=== PATIENT | female | born 1965 | race Caucasian/White ===

== ENCOUNTER 2016-09-18 11:58 | Emergency (ER) | payer BC ==
--- NOTE | 2016-09-18 12:03 | EDM.PDOC ---
ED HPI GENERAL MEDICAL PROBLEM - General Chief Complaint: ENT Problem Stated Complaint: [id number] STREP Time Seen by Provider: 09/18/16 12:40 Source of Information: Reports: Patient, RN, RN Notes Reviewed History Limitations: Reports: No Limitations - History of Present Illness INITIAL COMMENTS - FREE TEXT/NARRATIVE: Onset sore throat 4 days ago with fever, chills and body aches. No nausea or vomiting. Quality: Reports: Ache Severity: Moderate Improves with: Reports: None Worsens with: Reports: None Associated Symptoms: Reports: No Other Symptoms Throat Pain Score (Numeric/FACES): 7 - Related Data Allergies Allergy/AdvReac Type Severity Reaction Status Date / Time Sulfa (Sulfonamide Allergy Rash Verified 09/18/16 12:06 Antibiotics) Home Meds: Home Meds Sertraline [Zoloft] 50 mg PO DAILY 05/02/16 [History] Ibuprofen 400 mg PO ASDIRECTED PRN 09/18/16 [History] Past Medical History Genitourinary History: Reports: None Psychiatric History: Reports: Depression - Past Surgical History Female Surgical History: Reports: Section Social & Family History - Family History Family Medical History: Noncontributory - Tobacco Use Smoking Status *Q: Never Smoker Second Hand Smoke Exposure: No - Caffeine Use Caffeine Use: Reports: Soda - Recreational Drug Use Recreational Drug Use: No ED ROS ENT - Review of Systems Review Of Systems: ROS reveals no pertinent complaints other than HPI. ED EXAM, ENT - Physical Exam Exam: See Below Exam Limited By: No Limitations General Appearance: Alert, WD/WN, No Apparent Distress Eye Exam: Bilateral Eye: Normal Inspection Ears: Normal External Exam, Normal Canal, Hearing Grossly Normal, Normal TMs Nose: Normal Inspection, Normal Mucousa, No Blood Mouth/Throat: Other (pharyngeal erythema with tonsillar exudates.) Head: Atraumatic, Normocephalic Neck: Other (shoddy tender bilateral upper/anterior LAD. Full ROM. No nuchal ridigity.) Respiratory/Chest: No Respiratory Distress, Lungs Clear, Normal Breath Sounds, No Accessory Muscle Use, Chest Non-Tender Cardiovascular: Normal Peripheral Pulses, Regular Rate, Rhythm, No Edema, No Gallop, No JVD, No Murmur, No Rub Back: Normal Inspection Extremities: Normal Inspection Psychiatric: Normal Affect, Normal Mood Skin: Warm, Dry, Intact, Normal Color, No Rash Course - Vital Signs Last Recorded V/S: Last Vital Signs Temp 36.4 C 09/18/16 12:04 Pulse 91 09/18/16 12:04 Resp 18 09/18/16 12:04 BP 132/68 09/18/16 12:04 Pulse Ox 98 09/18/16 12:04 - Orders/Labs/Meds Orders: Active Orders 24 hr Category Date Time Status CULTURE STREP A CONFIRMATION [RM] Stat Lab 09/18/16 12:15 Results STREP SCRN A RAPID W CULT CONF [RM] Stat Lab 09/18/16 12:15 Results Labs: Rapid strep negative. Departure - Departure Time of Disposition: 13:09 Disposition: Home, Self-Care 01 Condition: good Clinical Impression: Pharyngitis Qualifiers: Pharyngitis/tonsillitis etiology: unspecified etiology Qualified Code(s): J02.9 - Acute pharyngitis, unspecified - Discharge Information Instructions: Pharyngitis, [id number] Forms: ED Department Discharge Additional Instructions: RX: Amoxicillin 500mg. Frequent salt water gargles until improved. Follow up in clinic if not improved in 3 days. - My Orders Last 24 Hours: My Active Orders 09/18/16 12:15 CULTURE STREP A CONFIRMATION [RM] Stat STREP SCRN A RAPID W CULT CONF [RM] Stat - Assessment/Plan Last 24 Hours: My Active Orders 09/18/16 12:15 CULTURE STREP A CONFIRMATION [RM] Stat STREP SCRN A RAPID W CULT CONF [RM] Stat
[2016-09-18 12:04] VITALS: BP 132/68
== END 2016-09-18 13:26 | disposition home or self-care (01) ==
LOC: DL.ED 11:58
DX: J02.9 Acute pharyngitis, unspecified (principal); F32.9 Major depressive disorder, single episode, unspecified; Z88.2 Allergy status to sulfonamides
CPT/HCPCS: 87081; 87430; 99283

== ENCOUNTER 2017-07-04 06:02 | Day surgery (SDC) | payer BC ==
[~2017-07-04 06:02] MED LIST: Dextrose 5%-0.45% NaCl 1,000 ML IV SCH; Sodium Chloride 0.9% 10 ML Syringe FLUSH PRN
[2017-07-04] MEDS ORDERED: fentaNYL 100 MCG/2 ML SDV IV ONE ×5 (06:03→07:14)
[2017-07-04] MEDS ORDERED: Midazolam 1 MG/ML 2 ML SDV IV ONE ×7 (06:03→07:08)
[2017-07-04] MEDS ORDERED: fentaNYL 100 MCG/2 ML SDV ONE (06:12)
[2017-07-04] MEDS ORDERED: Midazolam 1 MG/ML 2 ML SDV ONE (06:12)
--- NOTE | 2017-07-04 08:19 | OR ---
DATE: 07/04/2017 PROCEDURE: Total colonoscopy. INSTRUMENT USED: PCF-H180 AL Olympus video colonoscope. PREMEDICATIONS: Fentanyl 150 mcg intravenous, Versed 4 mg intravenous. Nasal O2 cannula. The procedure was done under pulse oximetry, BP recording, and satellite project site monitor. INDICATION: Preventative screening colonoscopic examination is done for detection of any polypoid lesions and removal, endoscopic hemostasis therapy if needed. DESCRIPTION OF PROCEDURE: Initial rectal exam was unremarkable. Rigid anoscopy was normal. The colonoscope was passed with ease up to the ileocecal area. Photographs were taken of the normal-appearing cecum identified by landmarks of appendiceal orifice and double-bulged ileocecal folds. No bleeding was noted from any of the visualized areas at the commencement of the examination. No stricture. No vascular ectasia. No large isolated ulcerations seen. No evidence of diffuse inflammatory bowel disease in the form of friability, contact bleeding, or ulcerations. No polyp or tumor mass identified. Probing the proximal sides of folds and flexures, using adequate distention and clearing up the stool material, withdrawal of the scope was made. [id number] time over 6 minutes. No bleeding was noted from any of the visualized areas at the completion of examination. IMPRESSION: Normal study. The patient tolerated the procedure well. [facility] /[id number]
[2017-07-04 09:07] VITALS: BP 104/59
== END 2017-07-04 09:25 | disposition home or self-care (01) ==
LOC: DL.ENDO 06:02
PROVIDERS: ATTEND Internal Medicine Gastroenterology
DX: Z12.11 Encounter for screening for malignant neoplasm of colon (principal); E78.5 Hyperlipidemia, unspecified; F41.1 Generalized anxiety disorder; Z88.1 Allergy status to other antibiotic agents
CPT/HCPCS: J2250; J3010; J7042

== ENCOUNTER 2021-11-29 09:02 | Emergency (ER) | payer BC ==
[2021-11-29 09:21] VITALS: BP 140/97; PULSE 62
[2021-11-29] MEDS ORDERED: Gentamicin 0.3% Ophth Soln 5 ML Bottle ONE (09:52)
[2021-11-29 09:58] LABS: CORONAVIRUS COVID-19 NAA NEGATIVE (NEGATIVE)
[2021-11-29] MEDS ORDERED: Gentamicin 0.3% Ophth Soln 5 ML Bottle EYERT SCH (14:00)
== END 2021-11-29 10:16 | disposition home or self-care (01) ==
LOC: DL.ED 09:02
DX: J01.90 Acute sinusitis, unspecified (principal); H10.9 Unspecified conjunctivitis; Z88.2 Allergy status to sulfonamides; Z20.822 Contact with and (suspected) exposure to COVID-19
CPT/HCPCS: 0240U; 87081; 87430; 99283; A9270-GY